=== PATIENT | female | born 1940 | race Caucasian/White ===

== ENCOUNTER 2018-09-18 07:28 | Outpatient (CLI) | payer MEDICARE ==
[2018-09-18 08:15] LABS: INR 1.1 (0.8-1.2); PT - PROTHROMBIN TIME 11.9 secs (9.9-12.6)
--- NOTE | 2018-09-18 13:10 | Ultrasound Report ---
Reason: RUQ PAIN Procedure Date: 09/18/2018 Accession Number: [id number] / [id number] Procedure: US - Abdomen Limited CPT Code: FULL RESULT: EXAM: ABDOMEN ULTRASOUND LIMITED, RUQ EXAM DATE: 09/18/2018 08:04 AM. CLINICAL HISTORY: RUQ PAIN. COMPARISON: None. TECHNIQUE: Real-time scanning was performed with static images obtained. FINDINGS: Liver: Normal in size and echotexture. 15.9 cm. Main portal vein flow: Hepatopetal. Gallbladder: Normal. No stones, wall thickening, or sonographic Barnes's sign. Biliary System: CBD measures 6 mm. No intrahepatic or extrahepatic ductal dilatation. Other: The right kidney measures 11.6 cm in length with no hydronephrosis or renal calculus. IMPRESSION: Normal. No cholelithiasis or cholecystitis. RADIA
== END 2018-09-18 07:29 | disposition home or self-care (01) ==
LOC: DI 07:28
PROVIDERS: ATTEND Internal Medicine
DX: R10.11 Right upper quadrant pain (principal); E16.2 Hypoglycemia, unspecified
CPT/HCPCS: 36415; 76705; 81599; 82947; 85610

== ENCOUNTER 2018-10-24 14:24 | Outpatient (CLI) | payer MEDICARE | END 2018-10-24 14:25 | disposition home or self-care (01) | LOC: DI 14:24 | PROVIDERS: ATTEND Internal Medicine | DX: Z53.9 Procedure and treatment not carried out, unspecified reason (principal) ==

== ENCOUNTER 2018-11-09 15:34 | Outpatient (CLI) | payer MEDICARE ==
--- NOTE | 2018-11-12 07:57 | XRAY Report ---
Reason: right upper quadrat pain Procedure Date: 11/09/2018 Accession Number: [id number] / [id number] Procedure: XR - Ribs w/PA Chest RT CPT Code: FULL RESULT: EXAM: RIGHT RIB RADIOGRAPHY EXAM DATE: 11/09/2018 04:02 PM. CLINICAL HISTORY: Right upper quadrant pain. COMPARISON: ABDOMEN LIMITED 09/18/2018 7:35 AM. TECHNIQUE: 1 view of the chest and 3 views of the ribs. FINDINGS: Bones: Normal. No fracture or bone lesion. Lungs: No focal opacities. No pneumothorax. No pleural effusions. Mediastinum: Heart and mediastinal contours are unremarkable. Other: None. IMPRESSION: Normal chest and rib radiography. RADIA
== END 2018-11-09 15:35 | disposition home or self-care (01) ==
LOC: DI 15:34
PROVIDERS: ATTEND Internal Medicine
DX: R10.11 Right upper quadrant pain (principal)

== ENCOUNTER 2019-12-20 08:04 | Outpatient (CLI) | payer MEDICARE ==
[2019-12-20 08:19] LABS: BASOPHILS # (AUTO) 0.1 10^3/uL (0.0-0.1); BASOPHILS % (AUTO) 0.9 %; EOSINOPHILS # (AUTO) 0.1 10^3/uL (0.0-0.7); EOSINOPHILS % (AUTO) 1.4 %; LYMPHOCYTES # (AUTO) 3.4 10^3/uL (1.5-3.5); LYMPHOCYTES % (AUTO) 42.1 %; MEAN CORPUSCULAR HEMOGLOBIN 32.5 pg (27.0-31.0); MEAN CORPUSCULAR VOLUME 98.7 fL (81.0-99.0); MEAN PLATELET VOLUME 9.9 fL (7.9-10.8); MONOCYTES # (AUTO) 0.7 10^3/uL (0.0-1.0); MONOCYTES % (AUTO) 9.2 %; NEUTROPHILS # (AUTO) 3.7 10^3/uL (1.5-6.6); NEUTROPHILS % (AUTO) 46.3 %; PLT - PLATELET COUNT 182 10^3/uL (130-450); RED BLOOD COUNT 4.61 10^6/uL (4.20-5.40); RED CELL DISTRIBUTION WIDTH 13.2 % (12.0-15.0)
[2019-12-20 08:42] LABS: ALBUMIN 4.3 g/dL (3.2-5.5); ALBUMIN/GLOBULIN RATIO 1.2 (1.0-2.2); ALKALINE PHOSPHATASE 74 IU/L (42-121); ALT ALANINE AMINOTRANSFERASE 21 IU/L (10-60); AST ASPARTATE AMINOTRANSFERASE 32 IU/L (10-42); BILIRUBIN,TOTAL 0.8 mg/dL (0.2-1.0); BUN - BLOOD UREA NITROGEN 12 mg/dL (6-20); CALCIUM 9.4 mg/dL (8.5-10.3); CARBON DIOXIDE - CO2 28 mmol/L (21-32); CHLORIDE 99 mmol/L (101-111); CHOL/HDL RATIO 2.8 (<4.4); CHOLESTEROL 225 mg/dL; CREATININE 0.8 mg/dL (0.4-1.0); GLUCOSE 109 mg/dL (70-100); HDL CHOLESTEROL 80 mg/dL; LDL CHOLESTEROL,CALCULATED 127 mg/dL; LDL/HDL RATIO 1.6 (<4.4); SODIUM 138 mmol/L (135-145); TOTAL PROTEIN 7.9 g/dL (6.7-8.2); VLDL CHOLESTEROL 18 mg/dL
[2019-12-20] MEDS ORDERED: IOVERSOL 320 100 ML VIAL IVP ONE (09:41)
[2019-12-20 10:32] LABS: HEMOGLOBIN A1c% 6.2 % (4.27-6.07)
--- NOTE | 2019-12-20 20:21 | CT Report ---
PROCEDURE: CHEST W INDICATIONS: RT CHEST WALL PAIN CONTRAST: IV CONTRAST: Optiray 320 ml: 100 PO CONTRAST: *NO PO CONTRAST TECHNIQUE: After the administration of intravenous contrast, 5 mm thick sections acquired from the pulmonary api nika to the posterior costophrenic angles. 7 mm thick coronal MIP reformats were acquired. For radia tion dose reduction, the following was used: automated exposure control, adjustment of mA and/or kV according to patient size. COMPARISON: None. FINDINGS: Image quality: Excellent. Lungs and pleura: No acute air space opacities. Bibasilar atelectasis. More focal linear atelectasis versus scarring identified along the periphery of the left lower lobe. Moderate centrilobular pulmon amol emphysematous changes more predominant in the upper lobes. No pleural effusions or pneumothorax. Central and peripheral airways are patent and normal in caliber. Mediastinum: Heart size is normal. No pericardial effusion. Atherosclerotic calcifications of the c oronary arteries are present. No mediastinal or hilar adenopathy by size criteria. Thoracic aorta a nd central pulmonary arteries are normal in size. Scattered atherosclerotic calcifications of the tho racic aorta. No dissection visualized. Esophagus is normal in caliber. There is a small hiatal hernia . Bones and chest wall: No suspicious bony lesions. No acute vertebral body compression fractures. N o axillary or supraclavicular adenopathy by size criteria. Thyroid gland is unremarkable. Abdomen: Hepatic steatosis. Remainder of the visualized upper abdominal solid organs appear normal. Upper abdominal bowel loops are normal in caliber. IMPRESSION: 1. CT chest without acute cardiopulmonary abnormalities. 2. Moderate upper lobe predominant centrilobular pulmonary emphysematous change 3. Small hiatal hernia. 4. Diffuse hepatic steatosis. Reviewed by: Shayne Castillo MD on 12/20/2019 7:20 PM [place] Approved by: Shayne Castillo MD on 12/20/2019 7:20 PM [place] Station ID: [id number]
== END 2019-12-20 08:05 | disposition home or self-care (01) ==
LOC: LAB 08:04
PROVIDERS: ATTEND Internal Medicine
DX: R07.89 Other chest pain (principal); R91.8 Other nonspecific abnormal finding of lung field; K44.9 Diaphragmatic hernia without obstruction or gangrene; K76.0 Fatty (change of) liver, not elsewhere classified; Z13.6 Encounter for screening for cardiovascular disorders; J44.9 Chronic obstructive pulmonary disease, unspecified; I25.10 Atherosclerotic heart disease of native coronary artery without angina pectoris; R73.01 Impaired fasting glucose; F34.1 Dysthymic disorder
CPT/HCPCS: 36415; 71260; 80053; 80061; 82306; 83036; 84443; 85025; Q9967; 83721

== ENCOUNTER 2020-06-19 16:10 | Outpatient (CLI) | payer MEDICARE ==
--- NOTE | 2020-06-19 16:42 | XRAY Report ---
PROCEDURE: Ribs 2 View RT INDICATIONS: RIB PAIN TECHNIQUE: 2 views of the right ribs were acquired, along with a single view of the chest. COMPARISON: Radiographs 11/09/2018 FINDINGS: Surgical changes and devices: None. Bones and chest wall: No acute displaced rib fracture is seen. No suspicious bony lesions. Overlyin g soft tissues appear unremarkable. Multilevel degenerative changes are seen in the spine. Lungs and pleura: The visualized lung appears clear. No pleural effusions or pneumothorax are visib le. IMPRESSION: No acute displaced rib fracture. No pneumothorax. Reviewed by: Russell Carl MD on 06/19/2020 4:41 PM PDT Approved by: Russell Carl MD on 06/19/2020 4:41 PM PDT Station ID: [id number]
== END 2020-06-19 16:11 | disposition home or self-care (01) ==
LOC: DI 16:10
PROVIDERS: ATTEND Internal Medicine
DX: R07.81 Pleurodynia (principal)

== ENCOUNTER 2020-11-12 08:58 | Outpatient (CLI) | payer MEDICARE ==
--- NOTE | 2020-11-12 12:59 | Ultrasound Report ---
PROCEDURE: Carotid Doppler Complete INDICATIONS: TIA TECHNIQUE: Color and pulse Doppler interrogation was performed of both carotid systems, with image documentation and velocity measurements. COMPARISON: None. FINDINGS: The common carotid arteries are patent and demonstrate normal flow velocities. By velocity criteria, no hemodynamically significant stenosis can be seen within the internal carotid arteries. Normal appearing waveforms are seen. Atherosclerotic change can be seen. Antegrade flow seen within both vertebral arteries. IMPRESSION: No hemodynamically significant stenosis is seen. Atherosclerotic changes are noted. The estimate of stenosis included in the report of the imaging study was calculated using the NASCET method Reviewed by: Jaxson Hayes MD on 11/12/2020 11:57 AM [place] Approved by: Jaxson Hayes MD on 11/12/2020 11:57 AM [place] Station ID: [id number]
== END 2020-11-12 08:59 | disposition home or self-care (01) ==
LOC: DI 08:58
PROVIDERS: ATTEND Internal Medicine
DX: G45.9 Transient cerebral ischemic attack, unspecified (principal)
CPT/HCPCS: 93306; 93880

== ENCOUNTER 2021-04-04 09:04 | Outpatient (CLI) | payer MEDICARE | END 2021-04-04 09:05 | disposition EMS.NT | LOC: EMS 09:04 | DX: R20.2 Paresthesia of skin (principal) ==

== ENCOUNTER 2021-08-18 12:57 | Outpatient (CLI) | payer MEDICARE | END 2021-08-18 12:58 | disposition EMS.NT | LOC: EMS 12:57 | DX: S00.31XA Abrasion of nose, initial encounter (principal); W18.39XA Other fall on same level, initial encounter; Y92.009 Unspecified place in unspecified non-institutional (private) residence as the place of occurrence of the external cause ==

== ENCOUNTER 2021-11-05 09:35 | Outpatient (CLI) | payer MEDICARE ==
[2021-11-05] MEDS ORDERED: DIATRIZOATE MEGLU/DIATRIZO SOD 30 ML BOTTLE PO ONE ×2 (10:59→14:14)
[2021-11-05 11:48] LABS: CREATININE 1.2 mg/dL (0.4-1.0)
--- NOTE | 2021-11-05 14:28 | CT Report ---
PROCEDURE: Abdomen/Pelvis W INDICATIONS: LLQ PAIN CONTRAST: IV CONTRAST: Optiray 320 ml: 100 PO CONTRAST: Redi-Cat ml30 TECHNIQUE: After the administration of weight appropriate dose of intravenous contrast, 5 mm thick sections acqu ired from the diaphragms to the symphysis. 5 mm thick coronal and sagittal reformats were acquired. For radiation dose reduction, the following was used: automated exposure control, adjustment of mA and/or kV according to patient size. COMPARISON: None. FINDINGS: Image quality: Excellent. ABDOMEN: Lung bases: Bibasilar atelectasis more pronounced on the left. Heart size is normal. Coronary artery atherosclerotic calcifications. Solid organs: Liver and spleen are normal in size and enhancement. Liver demonstrates diffusely decr eased attenuation relative to the spleen. Findings are compatible with hepatic steatosis. Gallbladder is unremarkable. Biliary system is non dilated. Pancreas enhances normally. No adrenal nodules. Kidneys demonstrate normal size and enhancement, without hydronephrosis. Peritoneum and bowel: Bowel loops demonstrate normal wall thickness and caliber. A few scattered co lonic diverticula noted in the distal colon without evidence for acute inflammation. No free fluid or air. Nodes and vessels: No retroperitoneal or mesenteric adenopathy by size criteria. Aorta and inferior vena cava are normal in size. Scattered atherosclerotic calcifications of the abdominal aorta. Miscellaneous: Tiny fat-containing umbilical hernia without acute inflammation. PELVIS: Genitourinary: Bladder wall thickness is unremarkable for degree of distention. Miscellaneous: No inguinal hernias or adenopathy. Bones: No suspicious bony lesions. No acute vertebral body compression fractures. IMPRESSION: CT abdomen and pelvis without acute abnormalities to explain patient's symptoms. There a re a few scattered colonic diverticula without evidence for acute diverticulitis. Hepatic steatosis. Reviewed by: Shayne Castillo MD on 11/05/2021 2:27 PM PDT Approved by: Shayne Castillo MD on 11/05/2021 2:27 PM PDT Station ID: [id number]
== END 2021-11-05 09:36 | disposition home or self-care (01) ==
LOC: LAB 09:35
PROVIDERS: ATTEND Internal Medicine
DX: R10.32 Left lower quadrant pain (principal); K76.0 Fatty (change of) liver, not elsewhere classified; K57.30 Diverticulosis of large intestine without perforation or abscess without bleeding; Z79.899 Other long term (current) drug therapy
CPT/HCPCS: 36415; 74177; 82565; Q9963; Q9967

== ENCOUNTER 2021-11-26 14:29 | Outpatient (CLI) | payer MEDICARE ==
--- NOTE | 2021-12-03 09:45 | Mammography Report ---
BILATERAL DIGITAL SCREENING MAMMOGRAM 3D/2D: 11/26/2021 CLINICAL: Routine screening. Comparison is made to exam dated: 12/05/2013 mammogram - [facility]. Both breasts are almost entirely fatty (category a/<25% glandular tissue). No significant masses, calcifications, or other findings are seen in either breast. There has been no significant interval change. IMPRESSION: NEGATIVE There is no mammographic evidence of malignancy. A 1 year screening mammogram is recommended. Based on the Tyrer Cuzick model (a risk assessment model) the patients lifetime risk is 0.6% and her 10 year risk is 0.0%. According to the ACR, ACS, and NCCN guidelines, an annual breast MRI exam tobin g with mammogram is recommended if the patients lifetime risk is 20% or greater. This exam was interpreted at Station ID: [id number]. NOTE: For mammograms, a report in lay terms will be sent to the patient. Approximately 15% of breast malignancies will not be visualized mammographically. In the management of a palpable breast mass, a negative mammogram must not discourage biopsy of a clinically suspicious lesion. Electronically Signed By: Baylee [email or web address]:12/02/2021 20:51:04 ACR BI-RADS Category 1: Negative 3341F PARENCHYMAL PATTERN: (F) - The breast(s) demonstrate(s) diffuse fatty replacement. BI-RADS CATEGORY: (1) - 1 RECOMMENDATION: (ANNUAL) - Recommend routine annual screening mammography. [id number] 1 year screening LATERALITY: (B)
== END 2021-11-26 14:30 | disposition home or self-care (01) ==
LOC: DI 14:29
PROVIDERS: ATTEND Internal Medicine
DX: Z12.31 Encounter for screening mammogram for malignant neoplasm of breast (principal)

== ENCOUNTER 2021-12-15 15:50 | Emergency (ER) | payer MEDICARE ==
[2021-12-15 16:01] VITALS: BP 141/64
--- NOTE | 2021-12-15 16:22 | XRAY Report ---
PROCEDURE: Foot 3 View RT INDICATIONS: Trauma TECHNIQUE: 3 views of the foot were acquired. COMPARISON: None FINDINGS: Bones: There is osteopenia. Osteoarthritic changes are noted throughout right foot. No fractures or dislocations. No suspicious bony lesions. Soft tissues: No tibiotalar joint effusion. Achilles tendon appears normal. IMPRESSION: No acute right foot fracture or dislocation. 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 Reviewed by: Joel Singh MD on 12/15/2021 4:20 PM PDT Approved by: Joel Singh MD on 12/15/2021 4:20 PM PDT Station ID: [id number]
== END 2021-12-15 18:04 | disposition left against medical advice (07) ==
LOC: ED 15:50
DX: Z53.21 Procedure and treatment not carried out due to patient leaving prior to being seen by health care provider (principal)